=== PATIENT | female | born 1965 | race Caucasian/White ===

== ENCOUNTER 2020-10-20 20:15 | Emergency (ER) | payer SELFPAY ==
[~2020-10-20] VITALS: Ht 144.8 cm; Wt 52.2 kg
[2020-10-20 20:18] VITALS: Ht 144.8 cm; Wt 52.2 kg
[2020-10-20 21:03] VITALS: BP 159/95
== END 2020-10-20 21:03 | disposition home or self-care (01) ==
LOC: ED 20:15
DX: U07.1 COVID-19 (principal); E11.9 Type 2 diabetes mellitus without complications; Z90.710 Acquired absence of both cervix and uterus
CPT/HCPCS: U0003